=== PATIENT | male | born 1935 | race Caucasian/White ===

== ENCOUNTER 2019-05-07 13:29 | Inpatient (IN) ==
[2019-05-07 15:32] LABS: INR 1.05; PROTIME 14.2 Seconds (11.0-16.0); PTT 29.8 Seconds (22.3-41.8)
[2019-05-07 15:34] LABS: BASO# 0.01 X1000 (0.0-0.2); BASO% 0.2 % (0.0-0.8); EOS# 0.07 X1000 (0.0-0.7); EOS% 1.3 % (0.0-10.0); HEMATOCRIT 38.9 % (42.0-52.0); IMM GRAN# 0.01 X1000 (0.0-0.04); IMM GRAN% 0.2 % (0.0-0.5); LYMPH# 1.38 X1000 (1.2-3.4); MCH 28.8 PG (27-31); MCHC 33.4 g/dL (33-37); MCV 86.3 FL (81-99); MONO# 0.49 X1000 (0.11-0.59); MONO% 9.2 % (1.7-9.3); MPV 10.5 FL (7.4-10.4); NEUT# 3.34 X1000 (1.4-6.5); NEUT% 63.1 % (42.2-75.2); PLT 203 X1000 (130-400); RBC 4.51 XMIL (4.7-6.1); RDW 13.5 % (11.5-14.5)
--- NOTE | 2019-05-07 15:34 | Diag Imaging Result Doc PS360 ---
EXAM: CT HEAD W/O CONTRAST 05/07/2019 HISTORY: ALTERED MENTAL TECHNIQUE: This exam was performed using automated exposure control, adjustment of mA or kV according to patient size, and/or use of iterative reconstruction technique. COMMENT: There is no evidence of mass effect, bleed, or abnormal extra-axial fluid collection. There is mild generalized cerebral atrophy. The paranasal sinuses are clear. The calvarium is intact. IMPRESSION: No evidence of acute intracranial disease. Electronically signed by Ottoniel Denson 05/07/2019 3:31 PM
--- NOTE | 2019-05-07 15:35 | Diag Imaging Result Doc PS360 ---
EXAM: CHEST-PORTABLE 05/07/2019 HISTORY: ALTERED MENTAL, COUGH TECHNIQUE: AP portable at 1534 COMMENT: The lungs are not as well-expanded as on 12/01/2016. There is no evidence of acute cardiac or pulmonary disease. IMPRESSION: No acute abnormality. Electronically signed by Ottoniel Denson 05/07/2019 3:32 PM
[2019-05-07 15:44] LABS: ALBUMIN 4.2 g/dL (3.5-5.0); CALCIUM 8.9 mg/dL (8.8-10.2); CREATININE 1.2 mg/dL (0.7-1.2); POTASSIUM 3.7 mmol/L (3.5-5.1); TOTAL BILIRUBIN 0.6 mg/dL (0.20-1.00); TOTAL PROTEIN 6.3 g/dL (6.3-8.3)
[2019-05-07 15:51] LABS: INFLUENZA A NEGATIVE (NEGATIVE); INFLUENZA B NEGATIVE (NEGATIVE)
[2019-05-07] MEDS ORDERED: ROCEPHIN 1 GM in NS 50 ML IV ONE (16:02)
--- NOTE | 2019-05-07 16:09 | PROVIDER DOCUMENTATION ---
This chart was entered by Meagan Bradford Scribe, acting as scribe for Jim Kou MD. HPI-Musculoskeletal Pain/Inj - GENERAL Chief Complaint: Fall Stated Complaint: FALL / RIBS Time Seen by Provider: 05/07/19 13:37 Source: family - HX OF PRESENT ILLNESS-MUSKULOSKELTAL Nature of Presenting Problem: Pt is a 83 yom who presents to the ED w/ worsening Alzheimers. Pt daughters states that the pt has fell 3x since yesterday. Pt daughters states that the pt is not eating/drinking. Pt is not urinating. Pt is always cold so fever has not been confirmed. Pt daughter denies any vomiting/diarrhea. Pt does have a hx of HTN, Afib, and bradycardia. Quality of Pain: reports: none Onset/Duration: unsure Timing: still present Modifying Factors: improves with: nothing Any recent injury?: Yes Locality of Occurance: Home Review of Systems - Adult - REVIEW OF SYSTEMS - ADULT Constitutional: reports: see HPI. denies: chills, fever Eyes: reports: no symptoms reported. denies: eye pain Ears, Nose, Mouth & Throat: reports: no symptoms reported. denies: mouth swelling Cardiovascular: reports: no symptoms reported. denies: chest pain, edema Respiratory: reports: no symptoms reported, cough Gastrointestinal: reports: no symptoms reported. denies: abdominal pain Genitourinary: reports: see HPI, other (not urinating) Musculoskeletal: reports: no symptoms reported Integumentary: reports: no symptoms reported Neurological: reports: see HPI, other (worsened alzheimers) Psychiatric: reports: no symptoms reported Endocrine: reports: no symptoms reported Hematologic/Lymphatic: reports: no symptoms reported Allergic/Immunologic: reports: no symptoms reported All Other Systems: Reviewed and Negative Past History - Adult - PAST MEDICAL HISTORY-ADULT Review of Records: reports: Nursing Assessment Review, Medications Reviewed, Social history reviewed & non-contributory. Major Childhood Illnesses: reports: denies history Cardiovascular: reports: A-Fib, CAD, HTN, hyperlipidemia Respiratory: reports: denies history Gastrointestinal: reports: denies history Obstetrical/Gynecological: reports: denies history Genitourinary: reports: denies history Musculoskeletal: reports: other (osteoarthritis) Neurological: reports: Alzheimer's, CVA Psychiatric: reports: denies history Endocrine/Immune: reports: denies history Other Conditions: reports: other cancer (skin and ear lobe) - PRIOR SURGERIES/PROCEDURES Surgical/Procedure History: reports: cholecystectomy, hernia repair, joint replacement, other (earlobe ca, prostate, skin ca) - IMMUNIZATION STATUS Childhood Immunizations: See Nurse Assessment Flu Vaccine: See Nurse Assessment - FAMILY HISTORY Family History: reviewed, not pertinent - SOCIAL HISTORY Smoking: non-smoker Substance Use: denies Living Situation: family Physical Exam-Injury Related - Physical Exam-Injury Related Initial Vital Signs Reviewed: Yes General Appearance: alert, no apparent distress Eyes: PERRL/EOMI, pink conjunctivae Head, Ears, Nose, Mouth & Throat: normocephalic/atraumatic, moist mucous membranes Neck: non-tender, full range of motion, supple, normal inspection Respiratory: chest non-tender, lungs clear, normal breath sounds, no respiratory distress, no accessory muscle use. negative: rales, rhonchi, stridor, wheezing Cardiovascular: normal peripheral pulses, regular rate, rhythm, no edema, no JVD , no murmur Abdominal Exam: normal bowel sounds, non tender, soft Lymphatic: no adenopathy Back Exam: normal inspection, no CVA tenderness, no vertebral tenderness Extremity: normal range of motion, non-tender, normal inspection Integumentary: normal color, warm/dry. 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, grossly normal Psych/Mental Status: disoriented x 3 (pleasant affect, can't answer questions for himself.) - Glascow Coma Score Best Eye Response (Mallory): (4) open spontaneously Best Verbal Response (Abdulaziz): (5) oriented Best Motor Response (Mallory): (6) obeys commands Abdulaziz Total: 15 Progress - PLAN OF CARE/RESULTS Progress/Plan/Lab Results: Vital Signs - 8 hr 05/07/19 13:32 Temperature 98 F Pulse Rate 61 Respiratory Rate 18 Blood Pressure 105/63 O2 Sat by Pulse Oximetry 97 Laboratory Results - last 24 hr 05/07/19 05/07/19 05/07/19 15:09 15:09 15:09 WBC 5.30 RBC 4.51 L Hgb 13.0 L Hct 38.9 L MCV 86.3 MCH 28.8 MCHC 33.4 RDW Std Deviation 13.5 Plt Count 203 MPV 10.5 H Immature Gran % (Auto) 0.2 Neut % (Auto) 63.1 Lymph % (Auto) 26.0 [place] % (Auto) 9.2 Eos % (Auto) 1.3 Baso % (Auto) 0.2 Immature Gran # (Auto) 0.01 Neut # (Auto) 3.34 Lymph # (Auto) 1.38 [place] # (Auto) 0.49 Eos # (Auto) 0.07 Baso # (Auto) 0.01 PT INR PTT (Actin FS) Sodium 139 Potassium 3.7 Chloride 109 H Carbon Dioxide 18 L Anion Gap 12 BUN 24 H Creatinine 1.2 Estimated GFR/1.73 m2 58 BUN/Creatinine Ratio 20 Glucose 156 H Calculated Osmolality 285 Calcium 8.9 Magnesium 2.0 Total Bilirubin 0.60 AST 23 ALT 23 Alkaline Phosphatase 130 H Troponin T [id number]-Njiuntydfkp Pept Total Protein 6.3 Albumin 4.2 Globulin 2.0 Albumin/Globulin Ratio 2.0 Plasma Lactate Free T4 Influenza A (Rapid) Influenza B (Rapid) 05/07/19 05/07/19 05/07/19 15:09 15:09 15:09 WBC RBC Hgb Hct MCV MCH MCHC RDW Std Deviation Plt Count MPV Immature Gran % (Auto) Neut % (Auto) Lymph % (Auto) [place] % (Auto) Eos % (Auto) Baso % (Auto) Immature Gran # (Auto) Neut # (Auto) Lymph # (Auto) [place] # (Auto) Eos # (Auto) Baso # (Auto) PT INR PTT (Actin FS) Sodium Potassium Chloride Carbon Dioxide Anion Gap BUN Creatinine Estimated GFR/1.73 m2 BUN/Creatinine Ratio Glucose Calculated Osmolality Calcium Magnesium Total Bilirubin AST ALT Alkaline Phosphatase Troponin T Flk-B-Yrqnlmtikxs Pept Total Protein Albumin Globulin Albumin/Globulin Ratio Plasma Lactate 1.0 Free T4 1.41 Influenza A (Rapid) NEGATIVE Influenza B (Rapid) NEGATIVE 05/07/19 05/07/19 05/07/19 15:09 15:09 15:09 WBC RBC Hgb Hct MCV MCH MCHC RDW Std Deviation Plt Count MPV Immature Gran % (Auto) Neut % (Auto) Lymph % (Auto) [place] % (Auto) Eos % (Auto) Baso % (Auto) Immature Gran # (Auto) Neut # (Auto) Lymph # (Auto) [place] # (Auto) Eos # (Auto) Baso # (Auto) PT 14.2 INR 1.05 PTT (Actin FS) 29.8 Sodium Potassium Chloride Carbon Dioxide Anion Gap BUN Creatinine Estimated GFR/1.73 m2 BUN/Creatinine Ratio Glucose Calculated Osmolality Calcium Magnesium Total Bilirubin AST ALT Alkaline Phosphatase Troponin T < 0.010 Xli-K-Hexqzollmts Pept 423 Total Protein Albumin Globulin Albumin/Globulin Ratio Plasma Lactate Free T4 Influenza A (Rapid) Influenza B (Rapid) Orders Category Date Time Status Riley Cath Insertion ORDERED Care 05/07/19 14:29 Active Saline Loc NOW Care 05/07/19 14:26 Active CHEST-PORTABLE [RAD] Stat Exams 05/07/19 14:[address] HEAD W/O CONTRAST [CT] Stat Exams 05/07/19 14:24 Completed BLOOD CULTURE [BLDCUL] Stat Lab 05/07/19 14:28 Ordered CBC WITH ELECTRONIC DIFF [HEME] Stat Lab 05/07/19 15:09 Completed COMPREHENSIVE METABOLIC PANEL [CHEM] Stat Lab 05/07/19 15:09 Completed FREE T4 Stat Lab 05/07/19 15:[address] Stat Lab 05/07/19 15:09 Completed LACTATE, PLASMA [CHEM] Stat Lab 05/07/19 15:09 Completed MAGNESIUM [CHEM] Stat Lab 05/07/19 15:09 Completed PRO B-NATRIURETIC PEPTIDE Stat Lab 05/07/19 15:09 Completed PROTIME WITH INR [COAG] Stat Lab 05/07/19 15:09 Completed PTT [COAG] Stat Lab 05/07/19 15:09 Completed TROPONIN T Stat Lab 05/07/19 15:09 Completed URINALYSIS W/POSS RFLX CULT [URINALYSIS] Stat Lab 05/07/19 14:25 Uncollected URINE DRUG SCREEN PL Stat Lab 05/07/19 14:25 Uncollected Rocephin 1 gm/Ns IV Now Med 05/07/19 16:02 Ordered CefTRIAXONE [Rocephin] 1 gm 0.9% Sodium Chloride Inj [Ns] 50 ml IV NOW EKG [EKG] Stat Ther 05/07/19 14:25 Ordered Result Diagrams: 05/07/19 15:09 05/07/19 15:09 - XRAY 1 XRAY: Bilateral XRAY Study: Chest Impression: Normal (EXAM: CHEST-PORTABLE 05/07/2019 HISTORY: ALTERED MENTAL, COUGH TECHNIQUE: AP portable at 1534 COMMENT: The lungs are not as well- expanded as on 12/01/2016. There is no evidence of acute cardiac or pulmonary disease. IMPRESSION: No acute abnormality. Electronically signed by Ottoniel Denson 05/07/2019 3:32 PM 05/07/19 1532 Interpreting Physician: Ottoniel Denson MD Dictated Date/Time: 05/07/19 1531 cc: Jim Kuo MD; Vinny Haque MD) - CT/MRI 1 CT Study: Head Impression: Normal (EXAM: CT HEAD W/O CONTRAST 05/07/2019 HISTORY: ALTERED MENTAL TECHNIQUE: This exam was performed using automated exposure control, adjustment of mA or kV according to patient size, and/or use of iterative rec onstruction technique. COMMENT: There is no evidence of mass effect, bleed, or abnormal extra-axial fluid collection. There is mild generalized cerebral atrophy. The paranasal sinuses are clear. The calvarium is intact. IMPRESSION: No evidence of acute intracranial disease. Electronically signed by Ottoniel Denson 05/07/2019 3:31 PM 05/07/19 1531 Interpreting Physician: Ottoniel Denson MD Dictated Date/Time: 05/07/19 1529 cc: Jim Kuo MD; Vinny Haque MD) - CONSULTS/PCP/HOSPITALIST Notification #1 *Consult/PCP/Hospitalist*: Dr. Pagan, Hospitalist Time Discussed: 16:00 Reason/Comments: Discuss Admission Consult Disposition: Admit (Dr. Ellis accepted admission) Departure - Departure Date of Disposition Decision: 05/07/19 Time of Disposition Decision: 16:05 DIAGNOSIS: [place]lig[place]ria Altered mental status Qualifiers: Altered mental status type: delirium Qualified Code(s): R41.0 - Disorientation, unspecified Dementia Qualifiers: Dementia type: Alzheimer's disease Alzheimer's disease onset: unspecified onset Dementia behavioral disturbance: with behavioral disturbance Qualified Code(s): G30.9 - Alzheimer's disease, unspecified; F02.81 - Dementia in other diseases classified elsewhere with behavioral disturbance Disposition: ADMITTED INPATIENT 09 Certified Medical Emergency: Emergent Condition: Stable Referrals and Follow-Ups: Vinny Haque MD [Primary Care Provider] - - Critical Care Note This patient required my direct & personal management of CC.: No Attestation - Physician/ GERA Attestation Patient care was provided by Advanced Practice Provider:: No The physician spent face to face time with patient:: Yes Advanced Practice Provider documentation review:: Supervising physician onsite and consulted in the evaluation and care of this patient. The physician did have a face to face encounter with the patient. This chart was documented by the indicated scribe, (Meagan Bradford Scribe) and accurately reflects the services I performed and decisions made by me, Jim Kuo MD, as attested by the provider's signature.
[2019-05-07 16:25] LABS: URINE SOURCE CATH
[2019-05-07 16:35] LABS: BILIRUBIN URINE NEGATIVE (NEGATIVE); BLOOD URINE NEGATIVE (NEGATIVE); COLOR YELLOW; GLUCOSE URINE NEGATIVE (NEGATIVE); KETONE URINE TRACE mg/dL (NEGATIVE); LEUKOCYTES URINE NEGATIVE (NEGATIVE); NITRITE URINE NEGATIVE (NEGATIVE); PH URINE 6.5; PROTEIN URINE TRACE mg/dL (NEGATIVE); SP GRAVITY URINE 1.024; TURBIDITY URINE CLEAR (CLEAR); UR EPITHELIAL CELLS <10 /HPF (<10); URINE BACTERIA NEGATIVE /HPF; URINE RBC <10 /HPF (<10); URINE WBC <10 /HPF (<10); UROBILINOGEN URINE NORMAL (NORMAL)
[2019-05-07 16:43] LABS: UR AMPHETAMINES QUAL NONE DETECTED (NONE DETECT); UR BARBITUATES QUAL NONE DETECTED (NONE DETECT); UR BENZODIAZEPIN QUAL NONE DETECTED (NONE DETECT); UR CANNABINOIDS QUAL NONE DETECTED (NONE DETECT); UR COCAINE QUAL NONE DETECTED (NONE DETECT); UR METHADONE QUAL NONE DETECTED (NONE DETECT); UR METHAMPHETAMINE QUAL NONE DETECTED (NONE DETECT); UR OPIATES QUAL NONE DETECTED (NONE DETECT); UR OXYCODONE QUAL NONE DETECTED (NONE DETECT); UR PCP QUAL NONE DETECTED (NONE DETECT); UR PROPOXYPHENE QUAL NONE DETECTED (NONE DETECT); UR TCA QUAL NONE DETECTED (NONE DETECT)
[2019-05-07] MEDS ORDERED: ZOFRAN IV PRN (17:10)
[2019-05-07] MEDS ORDERED: TYLENOL PO PRN (17:10)
--- NOTE | 2019-05-07 18:00 | EKG Report ---
Test Performed on : 05/07/2019 5:55:13 PM Test Reason : AFIB Blood Pressure : / mmHG Vent. Rate : 055 BPM Atrial Rate : 055 BPM P-R Int : 208 ms QRS Dur : 088 ms QT Int : 494 ms P-R-T Axes : 073 071 075 degrees QTc Int : 472 ms Sinus bradycardia. Otherwise normal ECG When compared with ECG of 15-FEB-2007 15:35, T wave amplitude has decreased in Inferior leads QT has lengthened Confirmed by Milton Hassan MD ([id number]) on 05/15/2019 9:35:48 PM
[2019-05-07] MEDS ORDERED: SEROQUEL PO PRN (18:41)
[2019-05-07] MEDS ORDERED: HALDOL IV PRN (18:41)
[2019-05-07] MEDS ORDERED: BENADRYL IV PRN (18:41)
[2019-05-07] MEDS: ROCEPHIN 1 GM in NS 50 ML IV SCH (18:52)
[2019-05-07] MEDS: NS 1,000 ML IV SCH (18:52)
[2019-05-07] MEDS: PRILOSEC PO SCH (20:47)
[2019-05-07] MEDS: MULTAQ PO SCH (21:30)
--- NOTE | 2019-05-07 23:50 | HISTORY AND PHYSICAL ---
CHIEF COMPLAINT: Fall. HISTORY OF PRESENT ILLNESS: The patient is an 83-year-old male who has a known history of Alzheimer's. He actually had been doing well living at home until approximately 2 weeks ago when he started having some worsening symptoms and then 2 days ago had dramatically worsened symptoms, much more confused, disoriented, does not know who he is, where he is or who his family is. Family notes that he has pretty much drink 1 maybe 2 cans of Ensure over the past 48 hours. They deny any knowledge of fevers, cough, congestion. Deny any knowledge of GI or issues. REVIEW OF SYSTEMS: Unobtainable from Mr. Drake due to his confusion. Otherwise as noted above. PAST MEDICAL HISTORY: Significant for atrial fibrillation, known coronary artery disease, hypertension, hyperlipidemia, Alzheimer's, history of cerebrovascular accident. He has had skin and earlobe cancer. PAST SURGICAL HISTORY: Cholecystectomy, hernia repair, joint replacement, earlobe cancer, prostate cancer, skin cancer. FAMILY HISTORY: Noncontributory. SOCIAL HISTORY: Patient does not smoke or drink. He lives at home, is cared for by his family. PHYSICAL EXAMINATION: VITAL SIGNS: Reviewed. Temperature 98 degrees, pulse 61, respiratory rate 18, BP 105/63, saturation 95% on room air. GENERAL: Patient is awake. He is in no current respiratory distress. HEENT: Normocephalic. NECK: Supple. CARDIOVASCULAR: Regular rate. CHEST: Clear. ABDOMEN: Soft. EXTREMITIES: Moves all extremities. NEUROLOGIC: No changes although patient is disoriented due to his Alzheimer's. LABORATORIES: CBC, CMP essentially normal. CT head negative. Chest x-ray clear. ASSESSMENT: 1. Acute worsening of patient's chronic dementia. 2. Volume depletion by history. 3. Atrial fibrillation. 4. Alzheimer's type dementia. PLAN: We are going to admit patient to the hospital. Continue his home medications. We will place him on antibiotics, IV fluids. Discussed with the family for approximately 20 minutes DNR versus comfort care, hospice care. Discussed feeding tube, etc. cc: Bulmaro Perez MD
[2019-05-08] MEDS: MULTAQ PO SCH ×2 (09:30→20:29)
[2019-05-08] MEDS: DITROPAN PO SCH (09:30)
[2019-05-08] MEDS: TOPROL XL PO SCH (10:26)
[2019-05-08] MEDS: CELEXA PO SCH (10:26)
[2019-05-08] MEDS: MELATONIN PO SCH (10:27)
[2019-05-08] MEDS: ZANTAC PO SCH (10:27)
[2019-05-08] MEDS: NAMENDA PO SCH (10:27)
[2019-05-08] MEDS: PRAVACHOL PO SCH (10:28)
[2019-05-08] MEDS: COZAAR PO SCH (10:28)
[2019-05-08] MEDS: NS 1,000 ML IV SCH (16:45)
[2019-05-08] MEDS: ROCEPHIN 1 GM in NS 50 ML IV SCH (18:15)
[2019-05-08] MEDS: PRILOSEC PO SCH (20:29)
[2019-05-09] MEDS: NS 1,000 ML IV SCH (01:47)
--- NOTE | 2019-05-09 07:18 | PROGRESS NOTE ---
DATE: 05/08/2019 SUBJECTIVE: The patient himself has no new complaints. The family notes that he actually slept well last night. He is a little bit less confused today. PHYSICAL EXAMINATION: Vital signs: Temperature 97.4 degrees, pulse 58, respiratory rate 18, blood pressure 158/68. General: Patient is in no current respiratory distress. He is lying in bed. HEENT: Normocephalic. Neck: Supple. Cardiovascular: Regular rate. No murmurs. Chest: Clear, nonlabored. Extremities: Moves all extremities. ASSESSMENT: 1. Acute worsening of patient's chronic delirium and dementia. 2. Volume depletion. 3. Atrial fibrillation. 4. Alzheimer's type dementia. PLAN: Overall, patient does seem to be a little bit better after getting IV fluids and antibiotics. His culture currently is pending. The family has agreed and decided to speak with [facility] to see what options are available. cc: Bulmaro Perez MD
[2019-05-09] MEDS: NAMENDA PO SCH ×2 (09:18→10:03)
[2019-05-09] MEDS: ZANTAC PO SCH ×2 (09:18→10:06)
[2019-05-09] MEDS: PRAVACHOL PO SCH ×2 (09:18→10:05)
[2019-05-09] MEDS: MULTAQ PO SCH ×2 (09:18→10:00)
[2019-05-09] MEDS: COZAAR PO SCH ×2 (09:18→10:01)
[2019-05-09] MEDS: MELATONIN PO SCH ×2 (09:19→10:02)
[2019-05-09] MEDS: TOPROL XL PO SCH ×2 (09:19→10:05)
[2019-05-09] MEDS: DITROPAN PO SCH ×2 (09:19→10:01)
[2019-05-09] MEDS: CELEXA PO SCH ×2 (09:19→10:00)
[2019-05-09 15:49] VITALS: BP 147/81
--- NOTE | 2019-05-10 10:29 | DISCHARGE SUMMARY ---
ADMISSION DATE: 05/07/2019 DISCHARGE DATE: 05/09/2019 ADMISSION DIAGNOSES: 1. Acute worsening of patient's chronic dementia. 2. Volume depletion by history. 3. Atrial fibrillation. 4. Alzheimer's type dementia. DISCHARGE DIAGNOSES: 1. Acute worsening of the patient's chronic delirium and dementia. 2. Volume depletion. 3. Atrial fibrillation. 4. Alzheimer's type dementia. CONSULTATIONS: None. SURGERIES AND PROCEDURES: None. HOSPITAL COURSE: On 05/07/2019, Mr. Jatinder Drake, 83-year-old male with known Alzheimer's, presented after a fall. He had been doing well living at home, but around 2 weeks ago started having some worsening symptoms of his dementia and confusion, disorientation. Apparently, he had only had 1 or 2 cans of Ensure over the last 48 hours prior to admission. Head CT was negative. His CBC and CMP was normal. Chest x-ray was clear. He was continued on his home medication and placed him on antibiotics. DNR versus comfort care. Hospice care was discussed. He was made a Do Not Resuscitate level 1. After IV fluids and antibiotics, he seemed to have improved and then now he will be discharged home. DISCHARGE VITAL SIGNS: Temperature 98 degrees, heart rate 68, respiratory rate 20, blood pressure 142/61, O2 saturation 94% on room air. DISCHARGE LAB DATA: He never had any labs after the 07 of May. IMAGING: Head CT negative. Chest x-ray negative. EKG sinus bradycardia, rate was 55. QTc was 472. DISCHARGE MEDICATIONS: 1. Prilosec 40 mg p.o. nightly. 2. Amlodipine besylate 5 mg p.o. daily. 3. Celexa 10 mg p.o. daily. 4. Ditropan XL 5 mg p.o. daily. 5. Exelon 4.6 mg 24 hour patch transdermal daily. 6. Losartan potassium 100 mg p.o. daily. 7. Melatonin 10 mg p.o. daily. 8. Multaq 400 mg p.o. twice daily. 9. Namenda 10 mg p.o. daily. 10. Pravachol 40 mg p.o. daily. 11. Toprol-XL 50 mg p.o. daily. 12. Zantac 300 mg p.o. daily. DISCHARGE DIET: Regular diet with Ensure 3 times a day. DISCHARGE ACTIVITY: As tolerated. PHYSICIAN FOLLOWUP: Dr. Haque and [facility]. DISCHARGE INSTRUCTIONS: If your condition changes, contact physician and/or return to the emergency department. Changes may include, but not limited to shortness of breath, increased fatigue, excessive bleeding, unexplained weight loss or gain, unmanageable pain, signs or symptoms of infection. DISCHARGE DISPOSITION: Hospice/home. Dictated by QUOC Ohara for Charan Valdivia MD Addendum: Patient seen and examined by myself. Agree with QUOC note. It reflects my assessment and plan. Patient is being discharged in stable condition to home with hospice who will follow patient. cc: QUOC Ohara MD [facility]
== END 2019-05-09 17:20 | disposition hospice, home (50) | DRG 57 ==
LOC: P.ED 13:29 → SUATTDRO 16:58 → P.MEDSURG 16:58
PROVIDERS: ATTEND Internal Medicine